=== PATIENT | female | born 1945 | race Caucasian/White ===

== ENCOUNTER → 2019-06-30 | Outpatient (CLI) | payer MEDICARE, OTHER ==
--- NOTE | 2019-06-30 15:29 | 2DMMODE ---
[place] [address] 2 D/M-MODE ECHOCARDIOGRAM Name: BENNYNOÉ Room: [facility]#: [id number] Admission: 06/30/19 Attend Phys: Angelica March, Discharge: Date of : 45 Date of Service: 06/30/19 1529 Report #: [id number] THIS REPORT FOR: //name// APPROVED REPORT Study performed: 06/30/2019 14:07:47 EXAM: Comprehensive 2D, Doppler, and color-flow Echocardiogram Patient Location: Out-Patient BSA: 2.00 HR: 92 bpm BP: 120/72 mmHg Other Information Study Quality: Good Indications Atrial Fibrillation 2D Dimensions IVSd: 15.42 (7-11mm) LVOT Diam: 19.97 (18-24mm) LVDd: 48.62 mm PWd: 12.47 (7-11mm) Ascending Ao: 33.53 (22-36mm) LVDs: 37.19 (25-40mm) Aortic Root: 26.99 mm Volumes Left Atrial Volume (Systole) LA ESV Index: 30.20 mL/m2 Aortic Valve AoV Peak Tian.: 1.96 m/s AO Peak Gr.: 15.39 mmHg LVOT Max P.07 mmHg AO Mean Gr.: 7.89 mmHg LVOT Mean P.96 mmHg LVOT Max V: 1.01 m/s AO V2 VTI: 37.51 cm LVOT Mean V: 0.64 m/s TWAN (VTI): 1.80 cm2 LVOT V1 VTI: 21.49 cm Mitral Valve E/A Ratio: 2.27 MV Decel. Time: 207.19 ms MV E Max Tian.: 1.07 m/s MV PHT: 60.09 ms MVA (PHT): 3.66 cm2 [place] [address] 2 D/M-MODE ECHOCARDIOGRAM Name: NOÉ ZAPATA Room: [facility]#: [id number] Admission: 06/30/19 Attend Phys: Angelica March, Discharge: Date of : 45 Date of Service: 06/30/19 1529 Report #: [id number] TDI E/Lateral E': 8.23 E/Medial E': 9.73 Medial E' Tian.: 0.11 m/s Lateral E' Tian.: 0.13 m/s Pulmonary Valve PV Peak Tian.: 1.01 m/s PV Peak Gr.: 4.09 mmHg Tricuspid Valve RAP Estimate: 5.00 mmHg TR Peak Gr.: 34.61 mmHg RVSP: 39.61 mmHg PA Pressure: 39.61 mmHg Left Ventricle The left ventricle is normal size. There is normal LV segmental wall motion. Borderline concentric left ventricular hypertrophy. Left ventricular systolic function is borderline. LVEF is 50%. This study is not technically sufficient to allow evaluation of the LV diastolic function due to atrial fibrillation. Right Ventricle The right ventricle is normal size. The right ventricular systolic function is normal. Pacemaker lead is present in the right ventricle. Atria Left atrium is mildly dilated. Pacemaker lead is present in the right atrium. Aortic Valve Aortic valve is mildly calcified. No aortic regurgitation is present. No hemodynamically significant valvular aortic stenosis. Mitral Valve The mitral valve is normal in structure. Mild mitral regurgitation. No evidence of mitral valve stenosis. Tricuspid Valve The tricuspid valve is normal in structure. Mild tricuspid regurgitation. Pulmonic Valve The pulmonary valve is normal in structure. There is no pulmonic valvular regurgitation[place] [address] 2 D/M-MODE ECHOCARDIOGRAM Name: NOÉ ZAPATA Room: [facility]#: [id number] Admission: 06/30/19 Attend Phys: Angelica March, Discharge: Date of : 45 Date of Service: 06/30/19 1529 Report #: [id number] The aortic root is normal in size. IVC is normal in size and collapses >50% with inspiration. Pericardium There is no pericardial effusion. <Conclusion> The left ventricle is normal size. Borderline concentric left ventricular hypertrophy. Left ventricular systolic function is borderline. LVEF is 50%. This study is not technically sufficient to allow evaluation of the LV diastolic function due to atrial fibrillation. The right ventricle is normal size. Left atrium is mildly dilated. Aortic valve is mildly calcified. No aortic regurgitation is present. No hemodynamically significant valvular aortic stenosis. The mitral valve is normal in structure. Mild mitral regurgitation. The tricuspid valve is normal in structure. Mild tricuspid regurgitation. IVC is normal in size and collapses >50% with inspiration. There is no pericardial effusion. There is normal LV segmental wall motion. Pacemaker lead is present in the right ventricle. <ELECTRONICALLY SIGNED> By: Martinez Garcia MD, FACC 06/30/19 1529 1529 1529 Martinez Garcia MD, FACC /INF
== END ==
LOC: M.CRD 09:00
DX: I08.3 Combined rheumatic disorders of mitral, aortic and tricuspid valves (principal); I48.0 Paroxysmal atrial fibrillation